=== PATIENT | male | born 1995 | race Caucasian/White ===

== ENCOUNTER 2023-02-18 19:14 | Emergency (ER) | payer MEDICAID ==
[2023-02-18 19:34] VITALS: BP_SYST 134
[2023-02-18 20:03] LABS: BASOPHILS % (AUTO) 0.4 % (0.0-2.0); EOSINOPHILS # (AUTO) 0.2 K/uL (0.0-0.4); EOSINOPHILS % (AUTO) 2.7 % (0.0-4.0); HEMATOCRIT 42.7 % (36-54); LYMPHOCYTES # (AUTO) 1.9 K/uL (1.0-5.5); LYMPHOCYTES % (AUTO) 27.4 % (20.5-51.5); MEAN CORPUSCULAR HEMOGLOBIN 31 pg (27-31); MEAN CORPUSCULAR HGB CONC 35 % (32-36); MEAN CORPUSCULAR VOLUME 87 fL (79.0-98.0); MONOCYTES # (AUTO) 0.7 K/uL (0.0-1.0); MONOCYTES % (AUTO) 9.7 % (1.7-9.3); NEUTROPHILS # (AUTO) 4.1 K/uL (1.8-7.7); NEUTROPHILS % (AUTO) 59.8 % (40.0-70.0); PLATELET COUNT (AUTO) 225 K/uL (130-430); RED BLOOD CELL COUNT(AUTO) 4.93 MIL/uL (4.2-6.2); RED CELL DISTRIBUTION WIDTH 13.2 % (9.0-15.0); WHITE BLOOD COUNT (AUTO) 6.9 K/uL (4.8-10.8)
[2023-02-18 20:23] LABS: ALANINE AMINOTRANSFERASE 27 U/L (12-78); ANION GAP 9 (5-15); ASPARTATE AMINOTRANSFERASE 23 U/L (10-37); CALCIUM 8.8 mg/dL (8.4-11.0); CHLORIDE 102 mmol/L (98-107); CREATININE 1.07 mg/dL (0.55-1.30); GFR AFRICAN AMERICAN 108 mL/min (>90); GLUCOSE 92 mg/dL (70-99); TOTAL BILIRUBIN 0.6 mg/dL (0.0-1.0); UREA NITROGEN, BLOOD 17 mg/dL (8-21)
[2023-02-18] MEDS ORDERED: LORazepam 1 MG TABLET PO ONE (21:00)
[2023-02-18 21:08] VITALS: BP_SYST 138
== END 2023-02-18 21:09 | disposition home or self-care (01) ==
LOC: SED 19:14
DX: R07.89 Other chest pain (principal); F41.1 Generalized anxiety disorder; Z79.899 Other long term (current) drug therapy
CPT/HCPCS: 36415; 80053; 84484; 85025; 99283; 99284